=== PATIENT | male | born 1970 | race Caucasian/White ===

== ENCOUNTER → 2017-06-05 | Day surgery (SDC) | payer OTHER ==
[~2017-06-05] VITALS: Ht 177.8 cm; Wt 88.5 kg
[~2017-06-05] MED LIST: BENZONATATE200 MG PO; BUSPIRONE10 MG OR; CHERATUSSIN OR; CIPROFLOXACN500 MG PO; CLARITIN10 M1 PO; DEPO-MEDROL80 MG/ML IM; DIAZEPAM10 M2 PO; FLEXERIL PO; FLEXERIL5 M1 PO; FLONASE NASAL50 MCG; HYDROCODONE/ACE1 TAB PO; IBUPROFEN600 MG PO; IBUPROFEN800 MG PO; LEVAQUIN500 MG PO; LISINOPRIL10 MG PO; LORTAB 10 PO; MEDDOSEPAK PO; NAPROSYN500 MG PO; NASONEX50 MCG/ACT; NORCO1 TA1 PO; OMEPRAZOLE20 M1 PO; OMEPRAZOLE20 MG PO; PAROXETINE20 MG PO; PERCOCET1 TA4 PO; PREVACID30 M1; PREVACID30 M1 PO; PRILOSEC40 MG PO; PROTONIX40 M2 PO; RANITIDINE150 MG PO; ULTRAM50 M1 PO; VALIUM5 MG PO; ZITHROMAX500 MG PO; ZPAK PO
[2017-06-05 11:07] VITALS: BP 123/74
== END | disposition home or self-care (01) | DRG 502 ==
LOC: ORM 05:49
PROVIDERS: ATTEND Orthopaedic Surgery
PROC: 0LQ24ZZ Repair Left Shoulder Tendon, Percutaneous Endoscopic Approach (ICD-10-PCS; principal; 2017-06-05)
PROC: 0LS44ZZ Reposition Left Upper Arm Tendon, Percutaneous Endoscopic Approach (ICD-10-PCS; 2017-06-05)
PROC: 0RHK44Z Insertion of Internal Fixation Device into Left Shoulder Joint, Percutaneous Endoscopic Approach (ICD-10-PCS; 2017-06-05)
PROC: 0RNK4ZZ Release Left Shoulder Joint, Percutaneous Endoscopic Approach (ICD-10-PCS; 2017-06-05)
DX: M75.112 Incomplete rotator cuff tear or rupture of left shoulder, not specified as traumatic (principal); F17.210 Nicotine dependence, cigarettes, uncomplicated; S43.432A Superior glenoid labrum lesion of left shoulder, initial encounter; M75.52 Bursitis of left shoulder; M94.212 Chondromalacia, left shoulder; S43.492A Other sprain of left shoulder joint, initial encounter; X58.XXXA Exposure to other specified factors, initial encounter
CPT/HCPCS: J2710

== ENCOUNTER 2018-06-04 08:43 | Day surgery (SDC) | payer OTHER ==
[~2018-06-04] VITALS: Ht 177.8 cm; Wt 95.3 kg
[~2018-06-04 08:43] MED LIST changes: +CIMETIDINE 200200 MG PO; +MOTRIN800 MG PO; +RANITIDINE150 M1 PO
[2018-06-04 09:28] LABS: HEMATOCRIT 44.8 % (39.0-50.0); HEMOGLOBIN 14.8 g/dl (14.0-18.0); IMMATURE GRANULOCYTES 0.4 % (0.0-5.0); MEAN CELL VOLUME 95.1 fL CALC (80.0-100.0); MEAN CORPUSCULAR HGB 31.4 pG CALC (26.0-32.0); NEUT# 2.56 thou/uL (1.82-7.42); RED BLOOD COUNT 4.71 mill/uL (4.70-6.10); RED CELL DISTRI WIDTH 12.7 % (11.5-15.5)
[2018-06-04 09:54] LABS: ALBUMIN 4.5 g/dL (3.2-5.0); ALKALINE PHOSPHATASE 141 u/l (38-126); ANION GAP 13 (6-22 (CALC)); BILIRUBIN, TOTAL 0.6 mg/dL (0.0-1.4); BUN 7 mg/dL (9-20); BUN/CREATININE RATIO 8 (12-20 (CALC)); CARBON DIOXIDE 27 mmol/l (22-30); CHLORIDE 108 mmol/l (95-108); CREATININE 0.9 mg/dL (0.7-1.3); GFR > 60 ML/MIN (>=60 (CALC)); GFR FOR AFR.AMER. > 60 ML/MIN (>=60 (CALC)); POTASSIUM 4.1 mmol/l (3.5-5.1); SGOT/AST 21 u/l (17-59); SODIUM 144 mmol/l (137-146)
[2018-06-04 10:14] LABS: ACT PARTIAL THROMBO TIME 27.4 SECONDS (20.0-32.5); INTERNATIONAL NORMALIZED RATIO 0.9 RATIO (0.7-1.3); PROTHROMBIN TIME 9.9 SECONDS (9.0-12.5)
[2018-06-04] MEDS ORDERED: DILAUDID4 MG PO (13:48)
[2018-06-04 14:45] VITALS: BP 118/76
== END 2018-06-04 14:15 | disposition home or self-care (01) ==
LOC: ORM 08:43
PROVIDERS: ATTEND Orthopaedic Surgery
DX: M75.111 Incomplete rotator cuff tear or rupture of right shoulder, not specified as traumatic (principal); S43.431A Superior glenoid labrum lesion of right shoulder, initial encounter; M94.211 Chondromalacia, right shoulder; M75.51 Bursitis of right shoulder; M25.811 Other specified joint disorders, right shoulder; F17.210 Nicotine dependence, cigarettes, uncomplicated; X58.XXXA Exposure to other specified factors, initial encounter
CPT/HCPCS: J0131

== ENCOUNTER 2019-10-27 12:03 | Emergency (ER) | payer OTHER ==
[~2019-10-27] VITALS: Ht 177.8 cm; Wt 80.0 kg
[~2019-10-27 12:03] MED LIST changes: +DILAUDID4 MG PO
[2019-10-27] MEDS ORDERED: OMEPRAZOLE20 MG PO (12:51)
[2019-10-27] MEDS ORDERED: TRILEPTAL300 MG PO (12:53)
[2019-10-27] MEDS ORDERED: VALIUM2 MG PO (12:54)
[2019-10-27] MEDS ORDERED: LORTAB 7.57.5 MG PO (13:24)
[2019-10-27 13:38] VITALS: BP 136/78
== END 2019-10-27 13:38 | disposition home or self-care (01) ==
LOC: ED 12:03
DX: M54.41 Lumbago with sciatica, right side (principal); F17.200 Nicotine dependence, unspecified, uncomplicated